=== PATIENT | male | born 1960 | race Caucasian/White ===

== ENCOUNTER → 2019-07-06 | Outpatient (CLI) | payer BC ==
--- NOTE | 2019-07-06 11:21 | Diagnostic Imaging Report ---
EXAMINATION: MRI of the lumbar spine without contrast HISTORY: Low back pain radiating bilateral to the hips worsening for last 2 weeks. COMPARISON: None. TECHNIQUE: Sagittal T1, T2, STIR; axial T2 and proton density. FINDINGS: It is assumed that there are 5 lumbar vertebrae. Curvature/Alignment: Straightening of lumbar lordosis which may be related to muscle spasm or positional. Vertebrae: No evidence of recent fracture, infection, or neoplasm. Shallow Schmorl's node in the superior endplate of L3. Conus: Normal, terminating at L1-L2 Cauda equina: Unremarkable. Lower thoracic: Unremarkable. Paraspinal soft tissues: Probable extrarenal pelvis on the right side. Degenerative changes: L1-L2: Mild decreased disc height and T2 signal intensity, minimal symmetric disc bulge, no spinal canal or foraminal stenosis. L2-L3: Unremarkable. L3-L4: Unremarkable. L4-L5: Minimal symmetric disc bulge, no spinal canal or foraminal stenoses. L5-S1: Mild symmetric disc bulge and bilateral facet arthrosis. No spinal canal or foraminal stenoses. IMPRESSION: Mild degenerative changes at L1-L2, L4-L5 and L5-S1 without spinal canal or foraminal stenosis. No evidence of nerve root compression. Signed by: Dr. Denise Salas M.D. on 07/06/2019 11:17 AM
== END ==
LOC: MRI 08:10
PROVIDERS: ATTEND Family Medicine
DX: M54.16 Radiculopathy, lumbar region (principal); R20.2 Paresthesia of skin
CPT/HCPCS: 72148